=== PATIENT | female | born 1990 | race Caucasian/White ===

== ENCOUNTER 2021-02-15 04:51 | Emergency (ER) | payer OTHER ==
[~2021-02-15 04:51] MED LIST: PRINIVIL10 MG PO; ULORIC 40 MG TA40 MG PO
[2021-02-15 05:42] LABS: HEMOGLOBIN 13.1 gm/dl (12.3-15.3); RED BLOOD COUNT 4.71 M/UL (4.00-5.10); WHITE BLOOD COUNT 7.2 K/UL (4.5-11.0)
[2021-02-15 05:50] LABS: BUN/CREATININE RATIO 15 (0-10)
[2021-02-15] MEDS ORDERED: ZOFRAN ODT 4 MG4 MG PO (06:53)
[2021-02-15] MEDS ORDERED: PERCOCET 5-3251 EACH PO (06:53)
== END 2021-02-15 07:06 | disposition home or self-care (01) ==
LOC: ER1 04:51
PROVIDERS: Family Medicine
DX: N13.2 Hydronephrosis with renal and ureteral calculous obstruction (principal); I10 Essential (primary) hypertension
CPT/HCPCS: 80053; 81001; 83690; 84703; 85025; 96374; 96375; 99284; J1885; J2405